=== PATIENT | male | born 1980 | race Caucasian/White ===

== ENCOUNTER → 2017-01-16 | Outpatient (CLI) | payer BC ==
[~2017-01-16] MED LIST: PRED20TA PO
[2017-01-16 20:03] VITALS: BP 125/79
--- NOTE | 2017-01-16 20:03 | Urgent Care T Sheet Gen (E) ---
Intake General Temperature (Fahrenheit): 98.4 Pulse: 75 Blood Pressure Systolic: 125 Blood Pressure Diastolic: 79 Respirations: 18 SPO2: 97 Chief Complaint: had poison ghulam, rash on arms Source: Patient Exam Limitations: No limitations History of Present Illness Initial Comments Pt reports that his has been having trouble with a rash thought to be poison ghulam for most of last week, and now he has rash as well. He gets poison ghulam all the time, uusally requiring oral steroids, and this feels exactly the same. It started with his groin area, which has improved a lot, but his L arm also has rash and it is extremely itchy. He has been using the high-potency steroid cream his was prescribed, as she is and couldn't get steroids, but this hasn't seemed to help. His ended up getting a bacterial infection and went to the ER for antibiotics two days ago, but pt has not had any of the pain, fever, chills, or malaise that she had. This just seems like normal bad poison ghulam to him. Onset & Duration: Unsure, Days (2-4) Timing: Still present Similar Sympotms Previously: Yes (with poison ghulam) Prior Treatment: Treated by doctor (with steroids, prednisone) Allergies: Coded Allergies: codeine (Verified Allergy, Unknown, 11/17/15) Home Meds Active Scripts Prednisone 20 Mg Tablet3 Tab PO DAILY Inflammation #9 TAB Ref 1 Prov:AI MOTT 01/16/17 Respiratory Constitutional Symptoms: See HPINo Chills, No Fever, No Malaise EENTM: No symptoms reported Respiratory: No symptoms reported Cardiovascular: No symptoms reported Musculoskeletal: No symptoms reported Skin: See HPI Neurological: No Numbness, No Paresthesia Immunologic/Allergies: See HPI All Other Systems Reviewed Remaining Systems: All other systems reviewed with negative findings Past Eadcrsc-Dzhhzq-Pqualg Hx Patient's Social History Alcohol Use: Denies Use Surgeries/Hospitalizations Hospitalization/Surgery Hx: healthy Integumentary Integumentary History: Other, see comments (frequent poison ghulam requiring steroids) Physical Exam Physical Exam General Appearance: WD/WN No apparent distress Eyes, Ears, Nose, Throat Ex: PERRL/EOMI Skin Exam: Normal color Warm/dry/intact Rash Extremity Exam: Non-tender Full range of motion Neurologic/Psychiatric Exam: Oriented times 4 No motor deficits No sensory deficits Mood/affect nml Departure Urgent Care Impression Chief Complaint: had poison ghulam, rash on arms Impression: Primary Impression: Allergic contact dermatitis Qualified Code: L23.9 - Allergic contact dermatitis, unspecified cause Departure Disposition: 01 HOME OR SELF-CARE Condition: Stable Referrals: BOWEN RODRÍGUEZ MD (PCP) Additional Instructions: Discussed with pt that from history and exam I think that he has contact dermatitis from poison ghulam as he expects, and I have no problem with using the oral steroids as the topical is not working after several days. Considering his 's recent bacterial infection, I want him to be sure to follow up if he has fever, chills, redness, pain, or other concerning symptoms. If he is not completely resolved after 3 days of steroids, I think these could be refilled for continuing treatment. Pt states understanding and agrees to plan. All questions answered. Scripts Prednisone 20 Mg Tablet3 Tab PO DAILY Inflammation #9 TAB Ref 1 Prov:AI MOTT 01/16/17 End of report . AI MOTT Jan 16, 2017 17:34
== END ==
LOC: MHUC 17:09
PROVIDERS: ATTEND Physician Assistant Medical
DX: L23.7 Allergic contact dermatitis due to plants, except food (principal)
CPT/HCPCS: 99212